=== PATIENT | female | born 2000 | race Caucasian/White ===

== ENCOUNTER 2021-01-24 20:20 | Emergency (ER) | payer MEDICAID ==
[~2021-01-24] VITALS: Ht 165.1 cm; Wt 59.0 kg
[2021-01-24 21:59] VITALS: BP 114/73
[2021-01-24 22:00] VITALS: BP 114/73
[2021-01-24] MEDS ORDERED: ACETAMINOPHEN 325 MG TAB PO ONE (22:10)
--- NOTE | 2021-01-24 22:23 | NUR ---
Female Business Insurance Agent accompanied female patient for Breast Exam.
[2021-01-24] MEDS ORDERED: cefTRIAXone 2,000 MG in LIDOCAINE MPF 1% 2.1 ML IM ONE (22:25)
[2021-01-24] MEDS ORDERED: CEPH-588 PO (22:29)
[2021-01-24] MEDS ORDERED: LIDOCAINE MPF 1% 5 ML ONE (22:33)
[2021-01-24] MEDS ORDERED: cefTRIAXone 1,000 MG VIAL ONE (22:33)
[2021-01-24] MEDS ORDERED: NAPR-54 PO (22:34)
--- NOTE | 2021-01-24 22:45 | NUR ---
PT GIVEN DISCHARGE INSTRUCTIONS AND MEDICATION INFORMATION BY DR. SEBASTIAN. PT DISCHARGED AT THIS TIME.
== END 2021-01-24 22:45 | disposition home or self-care (01) ==
LOC: MED 20:20
DX: N61.0 Mastitis without abscess (principal); D64.9 Anemia, unspecified; Z79.899 Other long term (current) drug therapy
CPT/HCPCS: 96372; 99283; J0696; J2001